=== PATIENT | female | born 1995 | race Two or more races ===

== ENCOUNTER 2017-07-05 22:38 | Emergency (ER) | payer SELFPAY ==
[~2017-07-05] VITALS: Ht 175.3 cm; Wt 87.0 kg
[2017-07-06] MEDS ORDERED: ALBUTEROL (0.083%) 2.5MG/3ML NEB HHN STA (00:02)
[2017-07-06] MEDS ORDERED: IPRATROPIUM BROMIDE (0.02%) 0.5MG/2.5ML NEB HHN STA (00:02)
[2017-07-06] MEDS ORDERED: LEVOFLOXACIN 750MG PREMIX 150 ML IV STA (00:02)
[2017-07-06] MEDS ORDERED: METHYLPREDNISOLONE SOD SUCC 125 MG/2 ML VIAL IV STA (00:02)
[2017-07-06] MEDS ORDERED: MAGNESIUM 2 G PREMIX 50 ML IV STA (00:02)
[2017-07-06 01:00] VITALS: BP 131/74
== END 2017-07-06 01:01 | disposition left against medical advice (07) ==
LOC: ER 22:38
DX: J45.901 Unspecified asthma with (acute) exacerbation (principal); F17.210 Nicotine dependence, cigarettes, uncomplicated
CPT/HCPCS: 36415; 71010; 94640; 94644; 96365; 96375; 99285; G0482; J1956; J2930; J3475; J7611; Z7610

== ENCOUNTER 2017-07-06 15:47 | Emergency (ER) | payer OTHER ==
[~2017-07-06] VITALS: Ht 175.3 cm; Wt 86.0 kg
[2017-07-06 15:51] VITALS: BP 159/93
[2017-07-06] MEDS ORDERED: IPRATROPIUM/ALBUTEROL 0.5-3(2.5)MG/3ML NEB HHN ONE (16:00)
[2017-07-06] MEDS ORDERED: METHYLPREDNISOLONE SOD SUCC 125 MG/2 ML VIAL IV STA (17:18)
[2017-07-06] MEDS ORDERED: SODIUM CHLORIDE 0.9% 1,000 ML IV ONE (17:18)
[2017-07-06] MEDS ORDERED: ALBUTEROL (0.5%) 2.5MG/0.5ML NEB HHN ONE (17:30)
== END 2017-07-06 17:50 | disposition left against medical advice (07) ==
LOC: ER 15:51
DX: J45.901 Unspecified asthma with (acute) exacerbation (principal); R09.02 Hypoxemia; F17.210 Nicotine dependence, cigarettes, uncomplicated
CPT/HCPCS: 99283; J7030; J7620